=== PATIENT | female | born 1995 | race Caucasian/White ===

== ENCOUNTER 2017-04-29 10:34 | Outpatient (CLI) | payer BC ==
[2017-04-29 12:21] LABS: Anion Gap 10 mmol/L (10-20); BUN (Urea Nitrogen) 10 mg/dL (7.0-18.7); Calc. Creatinine Clearance 0 mL/min (70-130); Calcium 9.2 mg/dL (7.8-10.44); Carbon Dioxide 28 mmol/L (22-29); Chloride 102 mmol/L (98-107); Estimated GFR-MDRD Greater than 90; Glucose 91 mg/dL (70-105); Potassium 4.1 mmol/L (3.5-5.1); Sodium 136 mmol/L (136-145)
[2017-04-29] MEDS ORDERED: Iopamidol 300 61% 100 ML VIAL FS ONE (12:25)
--- NOTE | 2017-04-29 13:26 | RAD ---
IVP: COMPARISON: None. HISTORY: Ureteral stone. TECHNIQUE: An IVP is performed in standard fashion. 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 There are symmetric bilateral prompt nephrograms. There is symmetric excretion of the contrast into each renal collecting system. The calyces, ureters, and urinary bladder are normal in appearance. B oth ureters were seen in their entirety. No filling defects are seen. No significant postvoid resid ual was seen. IMPRESSION: Normal intravenous pyelogram. POS: [facility]
== END 2017-04-29 10:35 | disposition home or self-care (01) ==
LOC: RAD 10:34
PROVIDERS: ATTEND Urology
DX: N20.1 Calculus of ureter (principal)
CPT/HCPCS: 74410; 80048

== ENCOUNTER 2017-10-28 15:25 | Outpatient (CLI) | payer BC ==
--- NOTE | 2017-10-28 17:01 | ULT ---
RENAL ULTRASOUND: 10/28/2017 HISTORY: Kidney stones. TECHNIQUE: Multiplanar matamoros-scale sonographic imaging of the kidneys and urinary bladder obtained. FINDINGS: The right kidney measures 10.5 cm in craniocaudal dimension. No hydronephrosis or mass lesion. The left kidney measures 11 cm in craniocaudal dimension and demonstrates no hydronephrosis or mass l esion. The urinary bladder appears grossly unremarkable. No discrete renal calculi are noted, altho ugh evaluation for small calculi is limited on ultrasound. IMPRESSION: Unremarkable renal ultrasound. POS: [facility]
== END 2017-10-28 15:26 | disposition home or self-care (01) ==
LOC: SCSULT 15:25
PROVIDERS: ATTEND Urology
DX: N20.0 Calculus of kidney (principal)
CPT/HCPCS: 76770

== ENCOUNTER 2018-07-21 07:09 | Outpatient (CLI) | payer BC ==
--- NOTE | 2018-07-21 07:37 | ULT ---
Renal sonogram HISTORY: UTI. Kidney stones. Follow-up. COMPARISON: 10/28/2017. FINDINGS: The right kidney is 10.6 cm on today's exam and the left is 11.2 cm. Each has a normal sono graphic appearance without evidence of mass, stone, or hydronephrosis. Urinary bladder is incompletely distended without focal abnormality. IMPRESSION: Normal renal sonogram.
== END 2018-07-21 07:10 | disposition home or self-care (01) ==
LOC: SCSULT 07:09
PROVIDERS: ATTEND Urology
DX: N20.0 Calculus of kidney (principal)
CPT/HCPCS: 76770